=== PATIENT | female | born 1945 | race Caucasian/White ===

== ENCOUNTER 2019-10-19 07:14 | Outpatient (CLI) | payer MEDICARE, OTHER, SELFPAY ==
[2019-10-19 07:44] LABS: Alanine Aminotransferase 10 U/L (4-35); Albumin Level 3.9 g/dL (3.5-5.1); Alkaline Phosphatase 131 U/L (38-126); Aspartate Amino Transferase 22 U/L (14-36); Bilirubin,Total 0.4 mg/dL (0.2-1.3); Blood Urea Nitrogen 11 mg/dL (7-17); Calcium 9.1 mg/dL (8.4-10.2); Carbon Dioxide 28 mmol/L (22-30); Chloride 106 mmol/L (98-107); Cholesterol 143 mg/dL (0-200); Creatine Kinase 35 U/L (30-135); Estimated Glomerular Filt Rate > 60; Glucose 111 mg/dL (65-105); HDL Direct 51 mg/dL; Potassium 4.1 mmol/L (3.4-5.0); Sodium 140 mmol/L (137-145); Triglycerides 118 mg/dL (<150)
[2019-10-19 07:55] LABS: LDL Cholesterol Direct 70 mg/dL
== END 2019-10-19 07:15 | disposition home or self-care (01) ==
LOC: ANHLAB 07:20
PROVIDERS: PCP Internal Medicine; Visit Provider Specialist
DX: E78.5 Hyperlipidemia, unspecified (principal); R60.9 Edema, unspecified
CPT/HCPCS: 36415; 80053; 80061; 82550

== ENCOUNTER 2020-09-07 16:20 | Outpatient (CLI) | payer MEDICARE, OTHER, SELFPAY ==
[2020-09-07 16:53] LABS: Basophils Absolute Auto 0.1 K/mm3 (0.0-0.1); Eosinophils Absolute Auto 0.2 K/mm3 (0-0.3); Eosinophils Percent Auto 3.3 % (0-4.4); Hemoglobin 12.8 g/dL (12.0-15.0); Immature Granulocyte Absolute 0.05 K/mm3 (0.00-0.031); Immature Granulocyte Percent A 0.7 % (0-0.5); Lymphocytes Absolute Auto 2.55 K/mm3 (0.9-3.2); Lymphocytes Percent Auto 34.9 % (18.3-44.2); Mean Corpuscular HGB Conc 32.8 g/dl (32-36); Mean Corpuscular Hemoglobin 31.1 pg (26-34); Mean Corpuscular Volume 94.9 fl (80-100); Mean Platelet Volume 8.4 fl (7.4-10.4); Monocytes Absolute Auto 0.7 K/mm3 (0.1-0.6); Monocytes Percent Auto 9.4 % (2.6-8.5); Neutrophils Absolute Auto 3.7 K/mm3 (1.3-6.7); Neutrophils Percent Auto 50.7 % (45.5-73.1); Platelet Count Result 281 k/mm3 (150-375); Red Blood Count 4.11 M/mm3 (4.2-5.4); White Blood Count 7.3 K/mm3 (4.5-10.0)
[2020-09-07 17:04] LABS: Alanine Aminotransferase 9 U/L (4-35); Albumin Level 3.8 g/dL (3.5-5.1); Alkaline Phosphatase 131 U/L (38-126); Anion Gap 7 mmol/L (8-16); Aspartate Amino Transferase 25 U/L (14-36); Bilirubin,Total 0.2 mg/dL (0.2-1.3); Blood Urea Nitrogen 14 mg/dL (7-17); Calcium 9.4 mg/dL (8.4-10.2); Carbon Dioxide 27 mmol/L (22-30); Chloride 105 mmol/L (98-107); Cholesterol 151 mg/dL (0-200); Estimated Glomerular Filt Rate > 60; Glucose 159 mg/dL (65-105); HDL Direct 52 mg/dL; Potassium 3.7 mmol/L (3.4-5.0); Sodium 139 mmol/L (137-145); Triglycerides 126 mg/dL (<150)
[2020-09-07 17:15] LABS: LDL Cholesterol Direct 66 mg/dL
== END 2020-09-07 16:21 | disposition home or self-care (01) ==
LOC: ANHLAB 16:25
PROVIDERS: PCP Internal Medicine
DX: E78.2 Mixed hyperlipidemia (principal); F41.3 Other mixed anxiety disorders; I10 Essential (primary) hypertension; Z13.89 Encounter for screening for other disorder
CPT/HCPCS: 36415; 80053; 80061; 83735; 84443; 85025

== ENCOUNTER 2021-10-18 15:43 | Outpatient (CLI) | payer MEDICARE, OTHER, SELFPAY ==
--- NOTE | ~2021-10-18 | XR_ITS ---
XR lumbar spine 2-3V 10/18/2021 16:13 Indication: Low back pain Procedure: 3 views lumbar spine Comparison: No prior studies for comparison. Findings: There is mild disc narrowing at L5-S1. There is facet hypertrophy at this level. Osteopenia . Vertebral body heights are maintained. There is atherosclerosis of the aorta with focal lower abdom inal aortic aneurysm measuring 3.9 cm. There is a right common and external iliac artery stent. Impression: 1: Mild lumbar spondylosis. 2: Lower abdominal aortic aneurysm measuring 3.9 cm. Reviewed, dictated and finalized at location A. Impression: 1: Mild lumbar spondylosis. 2: Lower abdominal aortic aneurysm measuring 3.9 cm.
== END 2021-10-18 15:44 | disposition home or self-care (01) ==
LOC: ANHIMG 15:48
PROVIDERS: PCP Internal Medicine; Visit Provider Internal Medicine
DX: M47.817 Spondylosis without myelopathy or radiculopathy, lumbosacral region (principal); R53.1 Weakness; I71.4 Abdominal aortic aneurysm, without rupture
CPT/HCPCS: 72100

== ENCOUNTER 2021-11-22 08:11 | Outpatient (CLI) | payer MEDICARE, OTHER, SELFPAY ==
--- NOTE | ~2021-11-22 | XR_ITS ---
EXAMINATION: XR hip BI wo pelvis INDICATION: Bilateral hip pain TECHNIQUE: Two views of each hip were obtained. COMPARISON: None available FINDINGS: The bones are osteopenic. There is an age-indeterminate subcapital right femoral neck fract ure. There is mild osteoarthritis of the hips. Phleboliths are noted in the pelvis. Endovascular sten ts are noted in the right pelvis. There appears to be a femoral-femoral bypass graft. IMPRESSION: 1. Age-indeterminate subcapital right femoral neck fracture. Reviewed, dictated and finalized at location A.
== END 2021-11-22 08:12 | disposition home or self-care (01) ==
PROVIDERS: PCP Internal Medicine; Visit Provider Internal Medicine
DX: M25.552 Pain in left hip (principal); M25.551 Pain in right hip; S72.011A Unspecified intracapsular fracture of right femur, initial encounter for closed fracture
CPT/HCPCS: 73521

== ENCOUNTER 2022-01-16 07:08 | Outpatient (CLI) | payer MEDICARE, OTHER, SELFPAY ==
[2022-01-16 07:49] LABS: Alanine Aminotransferase 12 U/L (6-35); Albumin Level 3.8 g/dL (3.5-5.1); Alkaline Phosphatase 114 U/L (38-126); Anion Gap 10 mmol/L (8-16); Aspartate Amino Transferase 20 U/L (14-36); Bilirubin,Total 0.5 mg/dL (0.2-1.3); Blood Urea Nitrogen 13 mg/dL (7-17); Calcium 8.9 mg/dL (8.4-10.2); Carbon Dioxide 28 mmol/L (22-30); Chloride 105 mmol/L (98-107); Cholesterol 160 mg/dL (0-200); Creatine Kinase 28 U/L (30-135); Estimated Glomerular Filt Rate > 60; Glucose 111 mg/dL (65-110); HDL Direct 47 mg/dL; Potassium 3.8 mmol/L (3.4-5.0); Sodium 143 mmol/L (137-145); Triglycerides 132 mg/dL (<150)
[2022-01-16 08:05] LABS: LDL Cholesterol Direct 85 mg/dL
== END 2022-01-16 07:09 | disposition home or self-care (01) ==
PROVIDERS: PCP Internal Medicine; Visit Provider Specialist
DX: E78.5 Hyperlipidemia, unspecified (principal)
CPT/HCPCS: 36415; 80053; 80061; 82550

== ENCOUNTER → 2022-09-06 16:38 | Outpatient (CLI) | payer MEDICARE, OTHER, SELFPAY ==
--- NOTE | ~2022-09-06 | XR_ITS ---
EXAMINATION: XR lumbar spine 2-3V DATE: 09/06/2022 17:09 INDICATION: Lumbar spondylosis. TECHNIQUE: 3 views of lumbar spine were obtained. COMPARISON: Lumbar spine radiographs 10/18/2021 FINDINGS: There is a compression fracture of L1 with 2/5 loss of height, changes of vertebroplasty, a nd focal kyphosis. There is mildly decreased disc height at T12-L1. There is moderate facet joint ost eoarthritis in lower lumbar spine. Vascular stents overlie the right pelvis. IMPRESSION: 1. Mild lumbar spondylosis. Reviewed, dictated and finalized at location A. IMPRESSION: 1. Mild lumbar spondylosis.
--- NOTE | ~2022-09-06 | XR_ITS ---
EXAMINATION: XR hip BI wo pelvis, XR sacrum coccyx min 2V DATE: 09/06/2022 17:10 INDICATION: Osteoarthritis with bilateral hip pain, right greater than left. TECHNIQUE: 1. Anteroposterior and frog-leg leg lateral views of the right hip and anteroposterior and frog-leg l ateral views of the left hip were obtained. 2. AP, angled AP and lateral views of the sacrum and coccyx were obtained. COMPARISON: 09/06/2022 FINDINGS: Diffuse osteopenia which decreases sensitivity for nondisplaced fractures. Old healed subcapital frac ture of the right femur which is healed with some lateral impaction. Subtle linear lucencies extendin g from the intertrochanteric region to the right femoral head consistent with previously removed inte rnal fixation. Alignment is otherwise normal. Large are intact. No acute fractures identified. Mild o steoarthritis at the right hip. Left hip joint space appears relatively preserved. There is also mild bilateral sacroiliac osteoarthritis. Mild lower lumbar spondylosis. Right common and external iliac artery stenting. Femoral-femoral bypass graft with associated bilateral inguinal surgical clips. Mult iple phleboliths in the pelvis. IMPRESSION: 1. Likely secondary mild right hip osteoarthritis with chronic subcapital fracture of the proximal ri ght femur which has healed with some residual lateral impaction. 2. Mild lower lumbar spondylosis and mild bilateral sacroiliac osteoarthritis. Reviewed, dictated and finalized at location A. IMPRESSION: 1. Likely secondary mild right hip osteoarthritis with chronic subcapital fract ure of the proximal right femur which has healed with some residual lateral imp action. 2. Mild lower lumbar spondylosis and mild bilateral sacroiliac osteoarthritis.
== END ==
PROVIDERS: PCP Anesthesiology Pain Medicine; Visit Provider Anesthesiology Pain Medicine
DX: M19.90 Unspecified osteoarthritis, unspecified site (principal); M47.816 Spondylosis without myelopathy or radiculopathy, lumbar region
CPT/HCPCS: 72100; 72220; 73521